=== PATIENT | male | born 1930 | race Caucasian/White ===

== ENCOUNTER 2016-06-21 06:40 | Inpatient (IN) | payer MEDICARE, OTHER ==
[~2016-06-21] VITALS: Ht 177.8 cm; Wt 116.7 kg
[~2016-06-21 06:40] MED LIST: ASA CHILDREN'S81 MG PO; ATIVAN-DPS0.5 MG PO; CARDIZEM CD360 MG PO; CEPACOL SORE T1 EACH PO; COUMADIN5 MG PO; COUMADIN6 MG PO; DULCOLAX-DPS10 MG PR; DUONEB DPS3 ML IH; EFFEXOR XR37.5 M1 PO; EFFEXOR XR75 MG PO; EXELON PATCH9.5 MG TD; EXELON TP; FLOMAX DPS0.4 MG PO; GLUCAGON1 MG/ML SQ; GLUTOSE 1537.5 GM PO; HYDRODIURIL-DPS25 MG PO; JANUVIA100 MG PO; KETOTIFEN FUMARA5 ML OU; KLOR-CON M2020 ME1 PO; LASIX DPS40 MG PO; LASIX DPS80 MG PO; LEVEMIR100 UNIT/1 SQ; LUBRIFRESH PM3.5 GM OU; MAALOX DPS30 ML PO; MICRO-K DPS10 MEQ PO; MILK OF MAGNESI10 ML PO; NITROSTAT0.4 MG SL; NOVOLIN R,100 UNITS/ SQ; NOVOLOG SQ; NOVOLOG100 UNIT/2 SQ; PRAVACHOL40 MG PO; RISPERDAL0.5 MG PO; SENOKOT S1 TAB PO; SPIRONOLACT50 MG PO; SPORTS CREAM85 GM TP; SURFAK DPS240 MG PO; TEARS NATURAL D15 ML OU; TEMOVATE O.05%15 GM TP; TYLENOL #3 DPS1 TAB PO; TYLENOL DPS325 MG PO; VENLAFAXINE HC225 MG PO; VITAMIN B-121000 MCG PO; VITAMIN D-32000 UNIT PO; VITAMIN D1000 UNI1 PO; ZADITOR5 ML OU; ZAROXOLYN2.5 MG PO; [UNRECOGNIZED DRUG - OTHER] NS
--- NOTE | 2016-06-21 19:07 | ER ---
ADMIT: 06/21/2016 RM/LOC: ER [facility] MR#: [id number] [address] [address] [place] [address] X 380 Emergency Room Report SEX: M AGE: 85 : 1930 DATE: 06/21/2016 The patient is an 85-year-old male with past medical history of dementia, chronic kidney disease, coronary artery disease, CHF, hypertension, atrial fibrillation, and diabetes, who came [facility] the ER from [facility] for hypoxia. Allegedly, the patient's O2 saturations from baseline 90s went to low 80s on nasal cannula. The patient denies any increased shortness of breath or chest pain. The patient has a history of dementia too. In the ER, patient had O2 saturation of 82 to 83 on room air with nasal cannula, and on 4 L of oxygen, it came to 85. The patient was tachypneic with respiratory rate of 33, blood pressure was holding well. EKG was atrial fibrillation with a rate of 80s. The patient was started on BiPAP for hypoxia. Chest x-ray was questionable for pulmonary edema versus infiltration. The patient was started on levofloxacin, and blood cultures were sent. PHYSICAL EXAMINATION: HEAD AND NECK: Noncontributory. CHEST: Decreased breath sounds bilaterally without any obvious wheezing or crackles. ABDOMEN: Distended, but soft and nontender. EXTREMITIES: Lower extremity, pitting edema bilaterally. The patient was started on levofloxacin for questionable pneumonia. Troponin was elevated at 2.67 And also D-dimer was also elevated too, rule out coronary artery disease/PE. Spouse at bedside and states patient is DNR/DNI. Internal Medicine was consulted and patient was admitted for further followups and treatments for pneumonia, hypoxia, rule out coronary artery disease, and PE. At the moment, the patient is on BiPAP with a pressure of 18/10, on 6 L oxygen, and O2 saturation at 91%. Hugo Voss MD/ víctor JOB #: [id number] CC: Hugo Voss MD, Attending Physician [facility] Physician, Family Physician
--- NOTE | 2016-06-23 17:48 | HP ---
ADMIT: 06/21/2016 RM/LOC: 303 [facility] MR#: [id number] [address] [address] [place] [address] X 380 History and Physical SEX: M AGE: 85 : 1930 DATE OF SERVICE: CHIEF COMPLAINT: Increased oxygen requirements. HISTORY OF PRESENT ILLNESS: The patient is an 85-year-old gentleman from [facility] Home. Patient has history of coronary artery disease, AFib, dementia, and CHF who presents to [facility] by reports that had lower oxygen levels. notes, maybe had a little fever and cough and just not been himself, not getting up as much often, especially the last week or so and not eating as well. In the emergency room, he was noted to be hypoxic in the low 80s. He had bilateral pulmonary infiltrates, edema versus infection and he is admitted for further evaluation and treatment. REVIEW OF SYSTEMS: Unobtainable secondary to the patient requiring BiPAP at this point. PAST MEDICAL HISTORY: 1. Dementia. 2. Type 2 diabetes. 3. Coronary disease. 4. Chronic atrial fibrillation. 5. Hypertension. 6. Heart failure. 7. Chronic kidney disease. 8. Anxiety. 9. Depression. 10.BPH. 11.Hearing loss. 12.Osteoarthritis/degenerative joint disease. 13.Hyperlipidemia. 14.Obesity. 15.History of varicose veins. 16.History of TIA. ALLERGIES: TO JOHN INHIBITORS AND CEPHALOSPORINS. SOCIAL HISTORY: He is with spouse and children. 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 CURRENT HOME MEDICATIONS: Include: 1. Tylenol/Tylenol with codeine. 2. Artificial Tears. 3. Aspercreme. 4. Aspirin. 5. Bisacodyl. 6. Cepacol throat spray. 7. Diltiazem. 8. Docusate. 9. Exelon. ADMIT: 06/21/2016 RM/LOC: 303 [facility] MR#: [id number] [facility] [address] [address] [place] [address] X 380 History and Physical SEX: M AGE: 85 : 1930 10.Lasix. 11.Guaifenesin. 12.DuoNeb. 13.Zaditor. 14.Lantus. 15.Milk of magnesia. 16.NovoLog sliding scale. 17.Potassium. 18.Pravachol. 19.Risperdal. 20.Flomax. 21.Effexor. 22.Vitamin B12. 23.Vitamin D. 24.Coumadin. FAMILY HISTORY: Noncontributory. REVIEW OF SYSTEMS: As noted above. All other systems are unobtainable secondary to the patient currently being on facial BiPAP. PHYSICAL EXAMINATION: VITAL SIGNS: 99.7, 83, 24, 130/60, and 93% on BiPAP of 12/5. GENERAL: This is an obese gentleman, he is awake and looks around the room, but is not really able to speak especially with the BiPAP on. HEENT: He is normocephalic atraumatic. Mucous membranes moist. NECK: Supple. LUNGS: He has really diminished at the bases. I hear some rales. HEART: He is regular. No obvious murmurs are noted. ABDOMEN: Soft, nontender, and nondistended. Positive bowel sounds throughout. EXTREMITIES: He has 2 to 3+ edema of feet, ankles, and calves bilaterally. He has a condom catheter in place. NEUROLOGIC. He is able to move all 4 extremities. He looks around the room, I do not notice any obvious focal deficits. LABORATORY DATA: His mag was 2. His CK was 170, his troponin was 2.6. BNP was 953. His lactic acid was 1.9. White count 13.5, hemoglobin was 14, and 239,000 platelets. Sodium 142, potassium 4.3, BUN is 18, creatinine 1.4, and calcium is 9.1. Chest x-ray shows what looks like pulmonary edema, really bilaterally, but question whether there could be hiding a consolidation there. His EKG was atrial fibrillation with no acute changes noted with rates in the 70s. ASSESSMENT AND PLAN: 1. Hypoxic respiratory failure. 2. Elevated troponin. Question Vtd-ZI-xagtqny elevation [place]. 3. History of coronary disease. ADMIT: 06/21/2016 RM/LOC: 303 [facility] MR#: [id number] [address] [place] [id number] [place] [address] X 380 History and Physical SEX: M AGE: 85 : 1930 4. History of what looks like acute on chronic systolic heart failure. 5. Subjective fever and cough. 6. Dementia. At this point, the patient is doing a little bit better on BiPAP, this mostly looks like failure to me. I wonder if he has had a cardiac event sometime in the last couple of days and now he is in acute heart failure after that. We are going to trend out some enzymes. I am going to diurese him right now. We will continue with BiPAP. With his elevated temp, white count, and questionable infiltrates along with some of his 's mentioning cough, I am going to cover him with antibiotics right now. I had a long talk with the patient's , he is a current DNR/DNI. This was his 3rd hospitalization since February and she does not know if he would really want to live this way. We will have supportive care visit with the family. If he decompensates, we have already decided that he will be made comfortable, but certainly might think more about comfort care hospice options. We will follow closely here in the ICU. Get Heck MD/ víctor JOB #: [id number] CC: Get Heck, Attending Physician Get Heck, Family Physician
[2016-06-24] MEDS ORDERED: ATIVAN-DPS0.5 MG PO (20:18)
[2016-06-24] MEDS ORDERED: SENOKOT S1 TAB PO (20:19)
[2016-06-24] MEDS ORDERED: TYLENOL DPS325 MG PO (20:19)
[2016-06-24] MEDS ORDERED: ROXANOL 20MG20 MG/ML PO (20:19)
[2016-06-24] MEDS ORDERED: ZOFRAN4 MG PO (20:20)
[2016-06-24] MEDS ORDERED: PROVENTIL2.5 MG/3 M IH (20:20)
[2016-06-24] MEDS ORDERED: TEARS NATURAL D15 ML OU (20:21)
[2016-06-24] MEDS ORDERED: LACRI-LUBE3.5 GM OU (20:21)
[2016-06-24] MEDS ORDERED: DULCOLAX-DPS10 MG PR (20:22)
[2016-06-24] MEDS ORDERED: HALDOL-DPS1 MG SL (20:22)
[2016-06-24] MEDS ORDERED: LORAZEPAM I2 MG/1 ML SL (20:23)
[2016-06-24] MEDS ORDERED: ISOPTO ATROPINE15 ML SL (20:23)
--- NOTE | 2016-06-27 09:49 | CO ---
ADMIT: 06/21/2016 RM/LOC: 303 [facility] MR#: [id number] [address] [address] [place] [address] X 380 Consultation SEX: M AGE: 85 : 1930 DATE OF CONSULTATION: 06/21/2016 ATTENDING PHYSICIAN: Get Heck CONSULTING PHYSICIAN: Dmitriy Perez MD LOCATION OF SERVICE: [facility]. REASON FOR CONSULTATION: Dr. Heck has requested our consultation for consumer credit counselor and goals of care. HISTORY OF PRESENT ILLNESS: This is a pleasant 85-year-old, elderly male, who is known to our service as my partner Brandi Clemons APRN did see him in February of 2016 during his hospitalization for heart failure, acute kidney injury, debility, dementia, and protein calorie malnutrition. He lives at the [facility] and has been for over 6 years now. He developed a fever with increasing oxygen needs and he was transferred here to our Emergency Department for further evaluation. Dr. Heck has admitted him into the intensive care unit for further evaluation and treatment. Troponin is found elevated 2.67, proBNP is elevated at 953. WBC count is elevated at 13.5. Albumin is 3.2. His urinalysis was positive with bacteria, culture is pending at this time. Antibiotic therapy with Zosyn and Levaquin has been ordered along with Lasix x1. BiPAP support is in place at this time as he has developed acute on chronic hypoxic respiratory failure. Spouse at the bedside reports he was started on oxygen about 2 months ago and he wears 2 L/minute of supplemental oxygen per nasal cannula 09/10. He currently is a do not resuscitate/do not intubate status and his spouse Cathy is at the bedside who is his decision maker. We are asked to see to consumer credit counselor goals and options of care in light of multiple comorbidities. Current functional status reflects a palliative performance score of 20. He is totally bed bound, unable to do any work, needing total cares, minimal sips for intake. He is drowsy, but does arouse to verbal stimuli. Prior to admission, his functional status reflects a palliative performance score of around 30. He is bed bound or wheelchair bound. He has been nonambulatory for the last 2 years. He is unable to do any work, needing total care. His intake has been reduced over the last 2 weeks. Per spouse's report, he has not been interested in food at all. He has been drowsy and confused at times. He does have dementia with a FAST score of 7c. PAST MEDICAL HISTORY: Vascular dementia, uncontrolled diabetes type 2, CAD, chronic atrial fibrillation, chronic hypertension, congestive heart failure, chronic kidney disease stage 3, depression, anxiety, BPH, hearing loss, degenerative joint disease, chronic stasis dermatitis of the legs, hyperlipidemia, chronic constipation, hypokalemia, obesity. ADVANCED DIRECTIVE AND CODE STATUS: He is a do not resuscitate/do not intubate status. His spouse is his [id number] by the name of Cathy Hubbard at #[phone]. ADMIT: 06/21/2016 RM/LOC: 303 [facility] MR#: [id number] [address] [place] [id number] [place] [address] X 380 Consultation SEX: M AGE: 85 : 1930 SOCIAL HISTORY: He currently lives at the [facility], he has lived there over 6 years now. He is , he does have adult children, however, spouse reports the children are not involved in his care. He is [employer]. There is no report of alcohol, illicit drug use or tobacco use at this time. He is a lifelong nonsmoker. He does have 5 children. CURRENT MEDICATIONS: Include: 1. Levaquin. 2. Zosyn. 3. Lopressor. 4. Tylenol. 5. Nitrostat. ALLERGIES: JOHN INHIBITORS, CEPHALOSPORINS, RED DYE, YELLOW DYE. REVIEW OF SYSTEMS: A 10-point review of systems was attempted, however, due to the patient's drowsiness, I was unable to obtain. PHYSICAL EXAMINATION: CONSTITUTIONAL: Weight is 278 pounds. Please see medical record for height and BMI. GENERAL STATUS: This is a , elderly, obese male, in no acute distress, unable to participate fully with me at this time. He is wearing BiPAP support. Spouse is at the bedside. VITAL SIGNS and CODE STATUS: He is a do not resuscitate/do not intubate status with temperature of 99.7, heart rate 83, respiratory rate 24, blood pressure 158/60. He is on 6 L of oxygen bled into BiPAP support, oxygenating 93%. HEENT: Head is normocephalic, atraumatic. He is not wearing glasses. Pupils are 3 mm, PERRLA. Hearing is unable to be assessed. Oral mucosa is dry. Dentition is worn. Anicteric sclerae. Conjunctivae pale. NECK: No lymphadenopathy. Trachea is midline. Supple. No JVD. He does have a thick neck. RESPIRATORY: Respirations are regular without distress. Lung sounds are diminished bilaterally. I do not hear crackles or wheezes or rhonchi. CARDIOVASCULAR: Irregularly irregular rhythm with a rate in the 80s. I do not auscultate any rubs, murmurs, clicks, or gallops at this time. He does have 3+ bilateral lower extremity edema. EXTREMITIES: Upper and lower extremities are free of cyanosis, clubbing. He does have 2 to 3+ bilateral lower extremity edema. INTEGUMENTARY: Skin temperature is warm. Skin is intact. He does have ecchymosis to bilateral lower extremities. MUSCULOSKELETAL: Free of joint deformities. NEUROLOGICAL: He is drowsy at this time. He does not follow my commands. PSYCHIATRIC: Unable to assess at this time. DIAGNOSTIC DATA: Laboratory work reveals a pH of 7.43, pCO2 of 40.2, PO2 of 55.7, and bicarb 26.1 on 6 L of oxygen. Sodium 142, potassium 4.3, chloride 104, creatinine 1.4, glucose 238, albumin 3.2. CK 296, MB 18.9, troponin ADMIT: 06/21/2016 RM/LOC: 303 [facility] MR#: [id number] [address] [address] [place] [address] X 380 Consultation SEX: M AGE: 85 : 1930 17.200. ProBNP 953, INR 2.24. Pro-time 23.9. WBC 13.5, hemoglobin 14.0, hematocrit 44.8, and platelets 239. Blood cultures have been drawn and are pending at this time. Urine culture has been ordered. RADIOLOGY: Reports have been reviewed. Please see EMR for details. IMPRESSION AND PLAN: 1. Physical debility. 2. Dementia with a FAST score of 7c. 3. Acute on chronic hypoxic respiratory failure. Baseline oxygen needs spouse reports at 2 L/minute per nasal cannula of supplemental oxygen 24/7, started 2 months ago. 4. Volume overload. Question congestive heart failure. BNP was elevated at 953. Last transthoracic echocardiogram was on February 2016 revealing ejection fraction of 65% with mild mitral regurgitation. 5. Elevated troponin. Questionable non ST-elevation myocardial infarction. 6. malnutrition with an albumin of 3.12 today. 7. Diabetes type 2. 8. Coronary artery disease. 9. Atrial fibrillation. 10.Palliative care. 11.Do not resuscitate/do not intubate status. I did have a long talk with spouse Cathy at the bedside as Mr. Hubbard is unable to participate fully in consultation at this time secondary to drowsiness. We reviewed Mr. Hubbard's failing health status as well as goals and options of care at length. I did review that we have seen Mr. Hubbard in the past and my partner Brandi saw him in February, spouse verbalizes understanding and paints a picture of failing functional status over the last two years. She points out his oral intake has been decreasing over the last two weeks." I think he is at the end." She expresses concerns with the care he receives at the [facility] which she shared with Brandi in February. Much support given and I encouraged her to focus on the present needs of her and what she would think he would want at this time. We did review code status options, full code versus do not resuscitate/do not intubate status with benefits versus burden and she does confirms the do not resuscitate/do not intubate status. She expresses her No.1 goal stability but if her continues to decline here in the hospital, she would like to transition him to comfort cares. We did review end of life care with comfort care measures at length and she verbalizes understanding. If he would stabilize and she would like his medical state to be optimized and then she would want transfer back to the [facility] on hospice care with no further hospitalizations as she feels he would not want to keep coming back and forth to the hospital any longer. PLAN OF CARE: We will continue at this time and take the next 24 hours to ADMIT: 06/21/2016 RM/LOC: 303 [facility] MR#: [id number] [address] [place] [phone] [place] [address] X 380 Consultation SEX: M AGE: 85 : 1930 evaluate his response to the medical treatment and we will continue to follow and meet with Cathy tomorrow morning and review goals and options of care in light of how Mr. Hubbard is doing. Spouse reports her many social stressors and much support is given to her during this consultation. I have discussed this consultation with nursing staff. Mr. Hubbard was seen in collaboration with Dr. Dmitriy Perez who agrees to the above assessment, discussion, and plan. I would like to thank Dr. Heck for the invitation to participate in Mr. Hubbard's hospital course. Total consultation time was from 1110 hours to 1155 on 06/21/2016 by the palliative Medicine SET PAINTER. Greater than 50% of the time was spent at the bedside and also consumer credit counselor and coordination of care. Nichelle Damon, SET PAINTER / Dmitriy Perez MD / víctor JOB #: [id number] CC: Get Heck, Attending Physician Get Heck, Family Physician
--- NOTE | 2016-06-30 16:21 | DS ---
ADMIT: 06/21/2016 RM/LOC: 303 [facility] MR#: [id number] [address] [place], [place] [address] [place] [address] X 380 Discharge Summary SEX: M AGE: 85 : 1930 ADMISSION DATE: 06/21/2016 DISCHARGE DATE: 06/23/2016 DISCHARGE DIAGNOSES: 1. Acute hypoxic respiratory failure. 2. Acute pulmonary edema. 3. Acute on chronic systolic congestive heart failure. 4. Non ST-segment elevation [place]. 5. Known coronary artery disease. 6. Diabetes. 7. Dementia. 8. Obesity. CONSULTATIONS: Supportive care. PROCEDURES: None. REASON FOR ADMISSION: A very pleasant 85-year-old gentleman who presented to the [facility] emergency room on the day of admission from the [facility] where he was noted to be found with low O2 sats. In the emergency room, he was noted to have bilateral infiltrates consistent with acute pulmonary edema. He also had an elevated troponin and he was admitted for further evaluation. For complete details, please see H and P dictated on day of admission. HOSPITAL COURSE: At the time of admission, the patient was placed in ICU. He was placed on BiPAP. He was evaluated and initially started on antibiotics but when looking at the patient clearly was volume overloaded and was given Lasix. This had been his third hospitalization since the end of February. Long talk with the . He was a DNR/DNI. We had a long discussion about his course and she wished to try to hopefully make him comfortable and feel a little bit better. We trended out his cardiac enzymes and after his troponin was just mildly elevated a little bit above 2 it was elevated more than 17 on ADMIT: 06/21/2016 RM/LOC: 303 [facility] MR#: [id number] [address] [address] [place] [address] X 380 Discharge Summary SEX: M AGE: 85 : 1930 the next set and clearly at this time it did seem like his non STEMI was causing his acute congestive heart failure. had noted that he just really had not been able to get out of bed recently and was not having any quality of life. At that point, supportive care saw the patient and we decided to make him comfort care. All medications and treatments were stopped, only comfort measures were continued and supportive care helped us with that. Social Work visited with the patient. We were able to get him off BiPAP, just some nasal cannula. The patient was monitored on comfort care the entire day of June 22. On the morning of June 23, the patient really wanted to get back home to the [facility]. Plans were made there via Social Work to transfer him back to the [facility] on hospice/comfort care upon arrival at the [facility] to be followed by hospice. Get Heck MD/ vdg JOB #: [id number] CC: Get Heck MD, Attending Physician Get Heck MD, Family Physician
== END 2016-06-23 12:15 | disposition short-term general hospital (02) | DRG 280 ==
LOC: ER 06:40 → 3ICU 08:35
PROVIDERS: ADMIT Internal Medicine
DX: I21.4 Non-ST elevation (NSTEMI) myocardial infarction (principal); I50.23 Acute on chronic systolic (congestive) heart failure; J96.01 Acute respiratory failure with hypoxia; Z51.5 Encounter for palliative care; E11.22 Type 2 diabetes mellitus with diabetic chronic kidney disease; E46 Unspecified protein-calorie malnutrition; F01.50 Vascular dementia, unspecified severity, without behavioral disturbance, psychotic disturbance, mood disturbance, and anxiety; E11.65 Type 2 diabetes mellitus with hyperglycemia; I48.2 Chronic atrial fibrillation; F32.9 Major depressive disorder, single episode, unspecified; I13.0 Hypertensive heart and chronic kidney disease with heart failure and stage 1 through stage 4 chronic kidney disease, or unspecified chronic kidney disease; I25.10 Atherosclerotic heart disease of native coronary artery without angina pectoris; N18.3 Chronic kidney disease, stage 3 (moderate); Z68.37 Body mass index [BMI] 37.0-37.9, adult; I87.2 Venous insufficiency (chronic) (peripheral); K59.09 Other constipation; F41.9 Anxiety disorder, unspecified; N40.0 Benign prostatic hyperplasia without lower urinary tract symptoms; H91.90 Unspecified hearing loss, unspecified ear; M19.90 Unspecified osteoarthritis, unspecified site; E78.5 Hyperlipidemia, unspecified; Z79.01 Long term (current) use of anticoagulants; Z66 Do not resuscitate; E66.9 Obesity, unspecified; Z86.73 Personal history of transient ischemic attack (TIA), and cerebral infarction without residual deficits; Z79.82 Long term (current) use of aspirin; Z79.4 Long term (current) use of insulin; Z74.01 Bed confinement status